=== PATIENT | female | born 1950 | race Caucasian/White ===

== ENCOUNTER → 2020-09-30 08:54 | Outpatient (CLI) | payer MEDICARE, SELFPAY ==
--- NOTE | 2020-09-30 08:57 | DI.RAD.S_ITS ---
PROCEDURE: XR CHEST 2V INDICATIONS: cough TECHNIQUE: 2 views of the chest were acquired. COMPARISON: None. FINDINGS: Surgical changes and devices: None. Lungs and pleura: Lungs are clear. No pleural effusions or pneumothorax. Mediastinum: Mediastinal contours are normal. Heart size is normal. Bones and chest wall: No suspicious bony abnormalities. Soft tissues appear unremarkable. IMPRESSION: No acute process. Dictated by: Alma Jarquin M.D. on 09/30/2020 at 15:10 Approved by: Alma Jarquin M.D. on 09/30/2020 at 15:11
[2020-09-30 09:45] LABS: COVID19 -Nasal RAPID Negative (Negative)
== END ==
PROVIDERS: PCP Family Medicine; Referring Provider Family Medicine; Visit Provider Internal Medicine
DX: Z20.822 Contact with and (suspected) exposure to COVID-19 (principal); R05 Cough; E78.2 Mixed hyperlipidemia
CPT/HCPCS: 71046; 87635; C9803

== ENCOUNTER → 2020-09-30 11:23 | Outpatient (CLI) | payer MEDICARE, SELFPAY ==
--- NOTE | 2020-10-05 09:12 | PM.PFT.1 ---
Pulmonary Function Test Referral & Results Date Patient Seen: 09/30/20 Requesting provider: Bhupinder Hill Results: The spirometry demonstrates an FVC of 2.71 L which is 100% of predicted. The FEV1 was measured at 2.15 L which is 106% of predicted. The FEV1/FVC ratio was 79 which is 104% of predicted. Following the administration of bronchodilator there was no appreciable change to above normal numbers. Lung volumes show an SVC of 2.62 L which is 99% of predicted. The diffusing capacity was measured at 20.94 which is 97% of predicted. The maximum voluntary ventilation was normal Interpretation: This study demonstrates normal pulmonary function
== END ==
PROVIDERS: PCP Family Medicine; Referring Provider Family Medicine; Visit Provider Family Medicine
DX: R05 Cough (principal); Z20.822 Contact with and (suspected) exposure to COVID-19; J98.8 Other specified respiratory disorders; E78.2 Mixed hyperlipidemia
CPT/HCPCS: 71046; 87635; 94060; 94726; 94729; C9803

== ENCOUNTER → 2020-11-15 10:36 | Outpatient (CLI) | payer MEDICARE, SELFPAY ==
--- NOTE | 2020-11-15 | DI.MG.S_ITS ---
BILATERAL DIGITAL SCREENING MAMMOGRAM 3D/2D WITH CAD WITH AUGMENTATION: 11/15/2020 CLINICAL: Routine screening. Bilateral augmentation. Comparison is made to exams dated: 12/22/2018 mammogram, 02/17/2017 breast MRI, 12/07/2010 mammogram, and 12/07/2010 ultrasound - out side. The tissue of both breasts is heterogeneously dense. This may lower the sensitivity of mammography. Current study was also evaluated with a Computer Aided Detection (CAD) system. Bilateral breast implants are present. No significant masses, calcifications, or other findings are seen in either breast. There has been no significant interval change. IMPRESSION: NEGATIVE There is no mammographic evidence of malignancy. A 1 year screening mammogram is recommended. This exam was interpreted at Station ID: [id number]. NOTE: For mammograms, a report in lay terms will be sent to the patient. Approximately 15% of breast malignancies will not be visualized mammographically. In the management of a palpable breast mass, a negative mammogram must not discourage biopsy of a clinically suspicious lesion. Electronically Signed By: Marino murdock/isma:11/15/2020 11:30:22 letter sent: Normal Exam ACR BI-RADS Category 1: Negative 3341F
== END ==
PROVIDERS: PCP Family Medicine; Referring Provider Family Medicine; Visit Provider Family Medicine
DX: Z12.31 Encounter for screening mammogram for malignant neoplasm of breast (principal); Z98.82 Breast implant status
CPT/HCPCS: 77063; 77067

== ENCOUNTER → 2021-03-20 15:43 | Outpatient (CLI) | payer MEDICARE, SELFPAY ==
--- NOTE | 2021-03-20 15:44 | DI.US.S_ITS ---
PROCEDURE: US PELVIC COMPLETE INDICATIONS: pelvic pain/poss L adnexal mass vs. uterus positioned on L TECHNIQUE: Real-time scanning was performed of the pelvic organs, with image documentation. Additional endovaginal scanning was necessary due to incomplete visualization of the adnexal and endometrial structures by transabdominal scanning. COMPARISON: None. FINDINGS: Uterus: Uterus is retroverted and normal in size at 3.8 x 1.5 x 2.7 cm. The myometrium is heterogeneous. The endometrium measures 1.3 mm combined thickness. Fluid with echogenic focus is seen within the endometrial canal, concerning for a polyp. Ovoid, slightly hypoechoic and hyperechoic lesions are seen in the myometrium, largest measuring 1.3 x 0.7 x 1 cm in the left aspect of the uterus. Ovaries: The right ovary measures 1.9 x 0.9 x 0.9 cm. The left ovary measures 1.7 x 0.8 x 1.1 cm. No adnexal masses are seen. Other: No pathologic free abdominal or pelvic fluid. IMPRESSION: 1. Fluid with echogenic focus within the endometrial canal, which may reflect a a polyp. A neoplastic process cannot be excluded. 2. Ovoid myometrial lesions, which may reflect calcified and noncalcified fibroids. We strive to produce accurate, complete, and clear reports of imaging services. To assist us in improving patient care, this report was composed using standard report templates and voice recognition software. Therefore, it may contain abnormal punctuation, insertions and/or omissions. Occasional wrong-word or sound-alike substitutions may occur. Though we review the report and make efforts to correct it, we do recommend that the report be read carefully in proper context to recognize any text inaccuracies. Dictated by: Ayad Larsen M.D. on 03/21/2021 at 9:02 Approved by: Ayad Larsen M.D. on 03/21/2021 at 9:14
== END ==
PROVIDERS: PCP Family Medicine; Referring Provider Registered Nurse Diabetes Educator; Visit Provider Registered Nurse Diabetes Educator
DX: R10.2 Pelvic and perineal pain (principal)
CPT/HCPCS: 76830; 76856

== ENCOUNTER → 2021-04-10 07:36 | Outpatient (CLI) | payer MEDICARE, SELFPAY ==
[2021-04-10 09:09] LABS: Hematocrit 40.1 % (36-46); Hemoglobin 13.5 g/dL (12.0-16.0); Mean Corpuscular HGB Conc 33.5 % (30-36); Mean Corpuscular Hemoglobin 29.7 PG (26-34); Mean Corpuscular Volume 88.4 fL (80-100); Platelet Count 224 X10^3/uL (150-400); Red Blood Cell Count 4.54 X10^6/uL (4.0-5.2); Red Cell Distribution Width 13.1 % (11.6-14.8); White Blood Cell Count 9.8 X10^3/uL (4.5-11.0)
[2021-04-10 09:11] LABS: Add Manual Diff / Slide Review YES
[2021-04-10 09:23] LABS: Alanine Aminotransferase 17 IU/L (<35); Albumin 4.6 g/dL (3.5-5.0); Albumin Globulin Ratio 1.8 (1.0-2.8); Alkaline Phosphatase 51 U/L (38-126); Aspartate Aminotransferase 28 IU/L (14-36); BUN Creatinine Ratio 20.6 (6-22); Bilirubin Total 0.7 mg/dL (0.2-1.3); Blood Urea Nitrogen 13 mg/dL (7-17); Calcium 9.1 mg/dL (8.4-10.2); Carbon Dioxide 29 mmol/L (22-32); Chloride 102 mmol/L (98-107); Cholesterol 182 mg/dL (140-199); Estimated Glomerular Filt Rate > 60.0 mL/min (>60); Globulin 2.6 g/dL (1.7-4.1); Glucose 118 mg/dL (80-110); HDL Cholesterol 82 mg/dL (40-60); HEMOLYSIS < 15 (0-50); LDL Cholesterol Calculated 86 mg/dL (<100); Potassium 4.4 mmol/L (3.4-5.1); Sodium 136 mmol/L (137-145); Total Protein 7.2 g/dL (6.3-8.2); Triglycerides 72 mg/dL (35-150)
[2021-04-10 09:30] LABS: Neutrophils Absolute Manual 2646 /uL (3000-5900); RBC Morphology Normal Morphology; Total Cells Counted 100
[2021-04-10 09:58] LABS: TSH w/ Reflex to FT4 1.22 uIU/mL (0.47-4.68)
== END ==
PROVIDERS: PCP Family Medicine; Referring Provider Family Medicine; Visit Provider Family Medicine
DX: I10 Essential (primary) hypertension (principal); E78.2 Mixed hyperlipidemia; G43.709 Chronic migraine without aura, not intractable, without status migrainosus
CPT/HCPCS: 36415; 80053; 80061; 84443; 85007; 85025

== ENCOUNTER → 2021-08-30 07:22 | Outpatient (CLI) | payer MEDICARE, SELFPAY ==
[2021-08-30 08:10] LABS: Hematocrit 40.7 % (36-46); Hemoglobin 13.6 g/dL (12.0-16.0); Mean Corpuscular HGB Conc 33.4 % (30-36); Mean Corpuscular Hemoglobin 29.9 PG (26-34); Mean Corpuscular Volume 89.7 fL (80-100); Platelet Count 202 X10^3/uL (150-400); Red Blood Cell Count 4.53 X10^6/uL (4.0-5.2); Red Cell Distribution Width 13.4 % (11.6-14.8); White Blood Cell Count 9.3 X10^3/uL (4.5-11.0)
[2021-08-30 08:11] LABS: Add Manual Diff / Slide Review YES
[2021-08-30 08:33] LABS: Alanine Aminotransferase 26 IU/L (<35); Albumin 4.8 g/dL (3.5-5.0); Albumin Globulin Ratio 2.3 (1.0-2.8); Alkaline Phosphatase 51 U/L (38-126); Aspartate Aminotransferase 34 IU/L (14-36); BUN Creatinine Ratio 21.1 (6-22); Bilirubin Total 0.7 mg/dL (0.2-1.3); Blood Urea Nitrogen 12 mg/dL (7-17); Calcium 9.2 mg/dL (8.4-10.2); Carbon Dioxide 29 mmol/L (22-32); Chloride 102 mmol/L (98-107); Estimated Glomerular Filt Rate > 60 mL/min (>60); Globulin 2.1 g/dL (1.7-4.1); Glucose 94 mg/dL (80-110); HEMOLYSIS < 15 (0-50); Hemoglobin A1C% w Est Avg Glu 5.4 % (4.0-6.0); Potassium 4.1 mmol/L (3.4-5.1); Sodium 140 mmol/L (137-145); Total Protein 6.9 g/dL (6.3-8.2)
[2021-08-30 09:01] LABS: Neutrophils Absolute Manual 2511 /uL (3000-5900); RBC Morphology Normal Morphology; Total Cells Counted 100
[2021-08-30 09:23] LABS: Hep C Virus Ab w/Reflex Quant NEGATIVE s/c (NEGATIVE)
[2021-08-30 09:29] LABS: Creatinine Urine Random 53.7 mg/dL
[2021-08-30 09:32] LABS: Microalbumi Creatinin Ratio Ur 16.7 ug/mg CR (<30); Microalbumin Urine Random 0.9 mg/dL (0-1.6)
[2021-08-31 15:23] LABS: Fecal Immunochemical Test Negative (Negative)
== END ==
PROVIDERS: PCP Family Medicine; Referring Provider Family Medicine; Visit Provider Family Medicine
DX: E78.2 Mixed hyperlipidemia (principal); R73.9 Hyperglycemia, unspecified; I10 Essential (primary) hypertension; Z12.11 Encounter for screening for malignant neoplasm of colon; Z11.59 Encounter for screening for other viral diseases; G43.709 Chronic migraine without aura, not intractable, without status migrainosus
CPT/HCPCS: 36415; 80053; 82043; 82274; 82570; 83036; 85007; 85025; 86803

== ENCOUNTER → 2021-12-18 16:26 | Outpatient (CLI) | payer MEDICARE, SELFPAY ==
--- NOTE | 2021-12-18 16:27 | DI.MG.S_ITS ---
BILATERAL DIGITAL SCREENING MAMMOGRAM 3D/2D WITH CAD WITH AUGMENTATION: 12/18/2021 CLINICAL: Routine screening. Comparison is made to exams dated: 11/15/2020 mammogram - [facility] and 12/22/2018 [facility]. Both breasts are heterogeneously dense, which may obscure small masses (category c / 51-75% glandular tissue). Current study was also evaluated with a Computer Aided Detection (CAD) system. Bilateral breast implants are stable. No significant masses, calcifications, or other findings are seen in either breast. There has been no significant interval change. IMPRESSION: NEGATIVE There is no mammographic evidence of malignancy. A 1 year screening mammogram is recommended. Based on the Tyrer Cuzick model (a risk assessment model) the patient's lifetime risk is 12.1% and her 10 year risk is 9.8%. According to the ACR, ACS, and NCCN guidelines, an annual breast MRI exam along with mammogram is recommended if the patient's lifetime risk is 20% or greater. This exam was interpreted at Station ID: [id number]. NOTE: For mammograms, a report in lay terms will be sent to the patient. Approximately 15% of breast malignancies will not be visualized mammographically. In the management of a palpable breast mass, a negative mammogram must not discourage biopsy of a clinically suspicious lesion. Electronically Signed By: Doc hughes/isma:12/19/2021 12:52:04 letter sent: Normal Exam ACR BI-RADS Category 1: Negative 3341F
== END ==
PROVIDERS: PCP Family Medicine; Referring Provider Family Medicine; Visit Provider Family Medicine
DX: Z12.31 Encounter for screening mammogram for malignant neoplasm of breast (principal)
CPT/HCPCS: 77063; 77067

== ENCOUNTER → 2022-06-27 06:40 | Outpatient (CLI) | payer MEDICARE, SELFPAY ==
[2022-06-27 07:51] LABS: Hematocrit 39.8 % (36-46); Hemoglobin 13.3 g/dL (12.0-16.0); Mean Corpuscular HGB Conc 33.4 % (30-36); Mean Corpuscular Hemoglobin 30.1 PG (26-34); Mean Corpuscular Volume 90.1 fL (80-100); Platelet Count 201 X10^3/uL (150-400); Red Blood Cell Count 4.41 X10^6/uL (4.0-5.2); Red Cell Distribution Width 13.1 % (11.6-14.8); White Blood Cell Count 12.4 X10^3/uL (4.5-11.0)
[2022-06-27 07:52] LABS: Add Manual Diff / Slide Review YES
[2022-06-27 08:03] LABS: Neutrophils Absolute Manual 2604 /uL (3000-5900); Total Cells Counted 100
[2022-06-27 08:04] LABS: Alanine Aminotransferase 21 IU/L (<35); Albumin 4.6 g/dL (3.5-5.0); Albumin Globulin Ratio 1.9 (1.0-2.8); Alkaline Phosphatase 56 U/L (38-126); Aspartate Aminotransferase 32 IU/L (14-36); BUN Creatinine Ratio 21.8 (6-22); Bilirubin Total 0.4 mg/dL (0.2-1.3); Blood Urea Nitrogen 12 mg/dL (7-17); Calcium 8.9 mg/dL (8.4-10.2); Carbon Dioxide 29 mmol/L (22-32); Chloride 104 mmol/L (98-107); Estimated Glomerular Filt Rate > 60 mL/min (>60); Globulin 2.4 g/dL (1.7-4.1); Glucose 95 mg/dL (80-110); HEMOLYSIS < 15 (0-50); Lactate Dehydrogenase 139 U/L (120-246); Potassium 4.2 mmol/L (3.4-5.1); RBC Morphology Normal Morphology; Sodium 138 mmol/L (137-145)
[2022-06-27 08:50] LABS: Cholesterol 194 mg/dL (140-199); HDL Cholesterol 79 mg/dL (40-60); LDL Cholesterol Calculated 103 mg/dL (<100); Triglycerides 62 mg/dL (35-150)
== END ==
PROVIDERS: Internal Medicine Medical Oncology; PCP Family Medicine; Referring Provider Family Medicine; Visit Provider Family Medicine
DX: E78.2 Mixed hyperlipidemia (principal); D72.820 Lymphocytosis (symptomatic)
CPT/HCPCS: 36415; 80053; 80061; 83615; 85007; 85025

== ENCOUNTER 2022-07-19 07:50 | Emergency (ER) | payer MEDICARE, SELFPAY ==
[2022-07-19 08:18] VITALS: BP 168/79; PULSE 69; RESP 19; TEMP 36.9; O2SAT 100; BMI 18.6
[2022-07-19 08:57] LABS: Hematocrit 39.6 % (36-46); Hemoglobin 13.3 g/dL (12.0-16.0); Mean Corpuscular HGB Conc 33.7 % (30-36); Mean Corpuscular Hemoglobin 30.4 PG (26-34); Mean Corpuscular Volume 90.2 fL (80-100); Platelet Count 189 X10^3/uL (150-400); Red Blood Cell Count 4.39 X10^6/uL (4.0-5.2); White Blood Cell Count 12.9 X10^3/uL (4.5-11.0)
[2022-07-19 09:00] LABS: Add Manual Diff / Slide Review YES
[2022-07-19 09:07] LABS: BUN Creatinine Ratio 25.5 (6-22); Blood Urea Nitrogen 14 mg/dL (7-17); C-Reactive Protein Quant < 0.5 mg/dL (<1.0); Calcium 9.2 mg/dL (8.4-10.2); Carbon Dioxide 29 mmol/L (22-32); Chloride 103 mmol/L (98-107); Estimated Glomerular Filt Rate > 60 mL/min (>60); Glucose 111 mg/dL (80-110); HEMOLYSIS < 15 (0-50); Potassium 4.8 mmol/L (3.4-5.1); Sodium 138 mmol/L (137-145)
[2022-07-19 09:13] LABS: Erythrocyte Sedimentation Rate 2 MM/HR (0-20)
[2022-07-19 09:19] LABS: Neutrophils Absolute Manual 2838 /uL (3000-5900); RBC Morphology Normal Morphology; Smudge Cells 1+; Total Cells Counted 100
--- NOTE | 2022-07-19 09:37 | ED_ITS ---
HPI - Headache General Chief Complaint: Headache Stated Complaint: head pain T-4 Time Seen by Provider: 07/19/22 08:27 Mode of arrival: Family Vehicle History of Present Illness HPI Narrative: 72-year-old female nonsmoker with history of hypertension and hyperlipidemia presents with a chief complaint of episodes of right-sided sharp and stabbing headache for the past 3-4 days. She states that it feels like an electric lightening bolt it starts behind her right ear and comes forward on the right side of her head. She denies any fever or chills. She is had no trauma or injury. She denies neck or back pain. She takes no blood thinners. She denies dizziness, weakness or lightheadedness. She has no blurred vision, numbness, tingling. She denies ear pain or sore throat. She denies any obvious provocation or palliation. She states the painful episodes last 30-45 seconds and seemed to come out of nowhere Related Data Previous Rx's Medication Instructions Recorded simvastatin 40 mg tablet 40 mg PO DAILY #90 tabs 09/26/21 losartan 25 mg tablet See Rx Instructions .Route 05/16/22 .COMPLEX #100 tabs gabapentin 300 mg capsule 300 mg PO TID #90 caps 07/16/22 carbamazepine 100 mg 100 mg PO BID #30 caps 07/19/22 capsule,extended release [id number] ondansetron 4 mg disintegrating 4 mg PO TID-QID PRN nausea and 07/19/22 tablet vomiting #10 tabs Allergies Allergy/AdvReac Type Severity Reaction Status Date / Time lisinopril AdvReac Mild cough Verified 07/19/22 08:23 Review of Systems Review of Systems Narrative: GENERAL: Denies chills, fatigue, malaise, fever, sweats. HEENT: Denies sinus pain, ear pain, sore throat, difficulty swallowing, dizziness. RESPIRATORY: Denies dyspnea, cough, wheezing, hemoptysis, sputum. CARDIOVASCULAR: Denies chest pain, palpitations, orthopnea, edema, GASTROINTESTINAL: Denies nausea, vomiting, abdominal pain, diarrhea, constipation, melena. : Denies dysuria, frequency, incontinence, hematuria, urinary retention. MUSCULOSKELETAL: denies weakness, joint pain, or bony pain SKIN: Denies rash, skin lesions, or other NEUROLOGIC: See HPI PSYCHIATRIC: No concerning psychosocial issues. 12 point review of systems is negative except for those stated above Patient History Medical History Chronic migraine Hyperglycemia Hyperlipidemia Hypertension Social History Smoking Status: Never smoker alcohol intake: current substance use type: does not use Smoking Status: Never smoker Substance Use Type: does not use Exam Narrative Exam Narrative: GENERAL: [72] year old patient appears stated age. Well-developed patient, in mild distress. HEAD: Atraumatic. Normocephalic. EYES: Pupils equal round and reactive. Extraocular motions intact. No scleral icterus. No injection or drainage. ENT: Nose without bleeding, purulent drainage. Throat without erythema, tonsillar hypertrophy or exudate. Airway patent. NECK: Trachea midline. Non tender CARDIOVASCULAR: Regular rate and rhythm without murmurs, gallops, or rubs. RESPIRATORY: Clear to auscultation. Breath sounds equal bilaterally. No wheezes, rales, or rhonchi. GASTROINTESTINAL: Abdomen soft, non-tender, nondistended. EXTREMITIES: No edema or joint tenderness. BACK: Nontender without deformity or crepitance. No flank tenderness. NEURO: AOx3. SKIN: No rash or erythema of visible areas Initial Vital Signs Initial Vital Signs: Vital Signs Temperature 98.5 F 07/19/22 08:18 Pulse Rate 69 07/19/22 08:18 Respiratory Rate 19 07/19/22 08:18 Blood Pressure 168/79 H 07/19/22 08:18 Pulse Oximetry 100 07/19/22 08:18 Oxygen Delivery Method Room Air 07/19/22 08:18 Course Orders Ordered: ED Orders 07/19/22 08:43 BMP [Basic Metabolic Panel] Stat CBC Auto Diff [Complete Blood Count AUTO DIFF] Stat CRP [C-Reactive Protein Quant] Stat ESR [Erythrocyte Sedimentation Rate] Stat Vital Signs Vital signs: Vital Signs - 8 hr 07/19/22 08:18 Temperature 98.5 F Pulse Rate 69 Respiratory Rate 19 Blood Pressure 168/79 H Pulse Oximetry 100 Oxygen Delivery Method Room Air MDM - Headache Lab Data 07/19/22 08:43 07/19/22 08:43 Labs: Lab Results 07/19/22 07/19/22 Range/Units 08:43 08:43 WBC 12.9 H (4.5-11.0) X10^3/uL RBC 4.39 (4.0-5.2) X10^6/uL Hgb 13.3 (12.0-16.0) g/dL Hct 39.6 (36-46) % MCV 90.2 (80-100) fL MCH 30.4 (26-34) PG MCHC 33.7 (30-36) % RDW 13.0 (11.6-14.8) % Plt Count 189 (150-400) X10^3/uL Neut % (Auto) Not Reportable Lymph % (Auto) Not Reportable [place] % (Auto) Not Reportable Eos % (Auto) Not Reportable Baso % (Auto) Not Reportable Lymph # (Auto) Not Reportable [place] # (Auto) Not Reportable Baso # (Auto) Not Reportable Total Counted 100 Seg Neutrophils % 22.0 L (38-70) % Lymphocytes % (Manual) 59.0 H (25-45) % Atypical Lymphs % 17.0 H ( - 0) % Monocytes % (Manual) 2.0 (2-11) % Neutrophils # (Manual) 2838 L (5028-8189) /uL Smudge Cells 1+ H RBC Morphology Normal morphology ESR 2 (0-20) MM/HR Sodium 138 (137-145) mmol/L Potassium 4.8 (3.4-5.1) mmol/L Chloride 103 (98-107) mmol/L Carbon Dioxide 29 (22-32) mmol/L BUN 14 (7-17) mg/dL Creatinine 0.55 (0.52-1.04) mg/dL Estimated GFR > 60 (>60) mL/min BUN/Creatinine Ratio 25.5 H (6-22) Glucose 111 H (80-110) mg/dL Calcium 9.2 (8.4-10.2) mg/dL C-Reactive Protein < 0.5 (<1.0) mg/dL [facility] Narrative Medical decision making narrative: [72] year old patient presents with right-sided sharp and stabbing headache coming in brief episodes Prior Charts reviewed in our EMR Primary Historian: patient Headache considerations include, but not limited to: Subarachnoid hemorrhage, but unlikely as patient denies sudden onset of pain, not worst of life, or neck pain Meningitis considered, but thought unlikely given lack of Brudzinski's, Kernig's sign, altered mental status or fever Giant cell arteritis considered, but thought unlikely given lack of unilateral findings, pain in episcopalian, vision change HTN Emergency considered, but thought unlikely given normal vitals Other serious diagnoses considered unlikely given lack of red flag findings such as sudden onset, increasing frequency, immunocompromise, systemic signs (fever, chills, stiff neck, or rash), focal neurologic findings, trauma, blood thinners, etc. Trigeminal neuralgia considered highly likely given patient's history and physical, brief sharp and stabbing episodes, unilateral. Findings and discharge diagnosis discussed with patient/family followed by verbalization of understanding Return precautions discussed with patient/family whom verbalize understanding of diagnosis and plan Discharge Plan Departure Patient Disposition: Home Clinical Impression: Right trigeminal neuralgia Instructions: DI for Trigeminal Neuralgia Activity Restrictions/Additional Instructions: *You have been diagnosed with [right-sided headache, concerning for possible trigeminal neuralgia. As we discussed your history and physical exam are reassuring in the labs we obtained today are helpful at ruling out other causes of headache.] *What to do: *Please continue to take your regular medications as directed. [ x] New medication prescriptions sent to your pharmacy: [[facility] ] [ ] New medication written as a paper prescription [ ] No new medications given *Please follow up with your primary care provider in 2-3 days, call for an appointment. Let them know you were seen in the Emergency Department and that we ask that you be seen in follow up. We will electronically transmit a record of today's note if your PCP is in our system *Return to Emergency Department if you should have any new, worsening or concerning symptoms, such as [fever greater than 101 F, shaking chills, worsening pain, persistent vomiting or other bothersome symptoms] Prescriptions: New carbamazepine 100 mg capsule, ER multiphase 12 hr 100 mg PO BID Qty: 30 0RF ondansetron 4 mg tablet,disintegrating 4 mg PO TID-QID PRN (Reason: nausea and vomiting) Qty: 10 0RF No Action simvastatin 40 mg tablet 40 mg PO DAILY Qty: 90 3RF losartan 25 mg tablet See Rx Instructions .ROUTE .COMPLEX Qty: 100 0RF Dose Instruction: TAKE ONE TABLET BY MOUTH ONE TIME DAILY Rx Instructions: TAKE ONE TABLET BY MOUTH ONE TIME DAILY gabapentin 300 mg capsule 300 mg PO TID Qty: 90 1RF Referrals: Bhupinder Hill MD [Primary Care Provider] - Stand Alone Forms: Patient Portal/API
[2022-07-19 10:06] VITALS: BP 164/72; PULSE 70; O2SAT 100
== END 2022-07-19 10:21 | disposition home or self-care (01) ==
PROVIDERS: Emergency Provider Emergency Medicine; PCP Family Medicine
DX: G50.0 Trigeminal neuralgia (principal)
CPT/HCPCS: 36415; 80048; 85007; 85025; 85651; 86140; 99281; 99283

== ENCOUNTER → 2022-08-06 13:12 | Outpatient (CLI) | payer MEDICARE, SELFPAY ==
--- NOTE | 2022-08-06 13:13 | DI.MRI.S_ITS ---
PROCEDURE: MR HEAD/BRAIN WO/W CON INDICATIONS: trigeminal neuralgia TECHNIQUE: Noncontrast axial T1 spin echo, axial T2 fast spin echo, sagittal and axial FLAIR, coronal T2 fast spin echo, axial gradient echo, axial diffusion and ADC through the brain. After the administration of contrast, axial and coronal and sagittal 3D VIBE or T1 spin echo with fat saturation through the brain. COMPARISON: None. FINDINGS: Image quality: Excellent. CSF Spaces: Basal cisterns are patent. No extra-axial fluid collections. Ventricles are normal in size and shape. Brain: No midline shift. No intracranial bleeds or masses. No abnormal intracranial enhancement. The brainstem appears normal. Diffusion-weighted images demonstrate no acute infarct. Normal intravascular flow voids are present. Thin-section images through the skull base demonstrate the cisternal component of the trigeminal nerve. No evidence of signal abnormality or adjacent vascular loop Skull and face: Calvarial marrow is normal in signal. Orbits appear normal. Sinuses: Sinuses and mastoids appear clear. IMPRESSION: Unremarkable MRI of the brain and trigeminal nerve. Approved by: Hemant Schultz M.D. on 08/06/2022 at 16:00
== END ==
PROVIDERS: PCP Family Medicine; Referring Provider Nurse Practitioner Family; Visit Provider Nurse Practitioner Family
DX: G50.0 Trigeminal neuralgia (principal)
CPT/HCPCS: 70553; A9579

== ENCOUNTER → 2023-01-07 15:31 | Outpatient (CLI) | payer MEDICARE, SELFPAY ==
--- NOTE | 2023-01-07 15:33 | DI.MG.S_ITS ---
BILATERAL DIGITAL SCREENING MAMMOGRAM 3D/2D WITH CAD WITH AUGMENTATION: 01/07/2023 CLINICAL: Routine screening. Comparison is made to exams dated: 12/18/2021 mammogram, 11/15/2020 mammogram - [facility], and 12/22/2018 mammogram - out side. Both breasts are heterogeneously dense, which may obscure small masses (category c / 51-75% glandular tissue). Current study was also evaluated with a Computer Aided Detection (CAD) system. Bilateral breast implants are stable. No significant masses, calcifications, or other findings are seen in either breast. There has been no significant interval change. IMPRESSION: NEGATIVE There is no mammographic evidence of malignancy. A 1 year screening mammogram is recommended. Based on the Tyrer Cuzick model (a risk assessment model) the patient's lifetime risk is 11.9% and her 10 year risk is 10.1%. According to the ACR, ACS, and NCCN guidelines, an annual breast MRI exam along with mammogram is recommended if the patient's lifetime risk is 20% or greater. This exam was interpreted at Station ID: [id number]. NOTE: For mammograms, a report in lay terms will be sent to the patient. Approximately 15% of breast malignancies will not be visualized mammographically. In the management of a palpable breast mass, a negative mammogram must not discourage biopsy of a clinically suspicious lesion. Electronically Signed By: Amita salguero/isma:01/08/2023 17:28:17 letter sent: Normal Exam ACR BI-RADS Category 1: Negative 3341F
== END ==
PROVIDERS: PCP Family Medicine; Referring Provider Family Medicine; Visit Provider Family Medicine
DX: Z12.31 Encounter for screening mammogram for malignant neoplasm of breast (principal)
CPT/HCPCS: 77063; 77067

== ENCOUNTER → 2023-03-30 07:55 | Outpatient (CLI) | payer MEDICARE, SELFPAY ==
[2023-03-30 09:12] LABS: Add Manual Diff / Slide Review YES; Hematocrit 40.3 % (36-46); Hemoglobin 13.3 g/dL (12.0-16.0); Mean Corpuscular HGB Conc 33.1 % (30-36); Mean Corpuscular Hemoglobin 29.2 PG (26-34); Mean Corpuscular Volume 88.3 fL (80-100); Platelet Count 177 X10^3/uL (150-400); Red Blood Cell Count 4.57 X10^6/uL (4.0-5.2); Red Cell Distribution Width 13.3 % (11.6-14.8); White Blood Cell Count 15.6 X10^3/uL (4.5-11.0)
[2023-03-30 09:37] LABS: Alanine Aminotransferase 20 IU/L (<35); Albumin 4.6 g/dL (3.5-5.0); Alkaline Phosphatase 60 U/L (38-126); Aspartate Aminotransferase 28 IU/L (14-36); Bilirubin Total 0.7 mg/dL (0.2-1.3); Blood Urea Nitrogen 11 mg/dL (7-17); Calcium 9.3 mg/dL (8.4-10.2); Carbon Dioxide 26 mmol/L (22-32); Chloride 101 mmol/L (98-107); Cholesterol 166 mg/dL (140-199); Estimated Glomerular Filt Rate > 60 mL/min (>60); Globulin 2.3 g/dL (1.7-4.1); Glucose 91 mg/dL (80-110); HDL Cholesterol 76 mg/dL (40-60); HEMOLYSIS < 15 (0-50); LDL Cholesterol Calculated 80 mg/dL (<100); Lactate Dehydrogenase 143 U/L (120-246); Potassium 4.4 mmol/L (3.4-5.1); Sodium 137 mmol/L (137-145); Total Protein 6.9 g/dL (6.3-8.2); Triglycerides 50 mg/dL (35-150)
[2023-03-30 11:37] LABS: Neutrophils Absolute Manual 2652 /uL (3000-5900); RBC Morphology Normal Morphology; Total Cells Counted 100
[2023-04-01 06:08] LABS: Apolipoprotein B 80 mg/dL (<90)
== END ==
LOC: LAB 07:56
PROVIDERS: PCP Family Medicine; Referring Provider Family Medicine; Visit Provider Family Medicine
DX: D72.820 Lymphocytosis (symptomatic) (principal); E78.2 Mixed hyperlipidemia; R73.9 Hyperglycemia, unspecified; I10 Essential (primary) hypertension
CPT/HCPCS: 36415; 80053; 80061; 82172; 83615; 85007; 85025

== ENCOUNTER → 2023-07-16 14:40 | Outpatient (CLI) | payer MEDICARE, SELFPAY ==
--- NOTE | 2023-07-16 14:40 | DI.RAD.S_ITS ---
PROCEDURE: XR DEXA AXIAL SKELETON INDICATIONS: osteopenia, postmenopausal COMPARISON: None. FINDINGS: Lumbar Spine: Bone mineral density 0.72 a g/cm2, T score -2 point, osteoporosis. Left Hip: Bone mineral density 0.657 g/cm2, T score -2.3, osteopenia. Left Femoral Neck: Bone mineral density 0.541 g/cm2, T score -2.8, osteoporosis. Right Hip: Bone mineral density 0.625 g/cm2, T score -2.6, osteoporosis. Right Femoral Neck: Bone mineral density 0.494 g/cm2, T score -3.2, osteoporosis. Fracture Risk Calculation (when applicable): 10-year fracture risk of a major osteoporotic fracture 22-26% and of a hip fracture 7.3-7.4%. (T score greater or equal to -1.0 to: NORMAL) (T score from -1.1 to -2.4: OSTEOPENIA) (T score less than or equal to -2.5: OSTEOPOROSIS) IMPRESSION: Based on WHO criteria, the patient has osteoporosis and increased risk for osteoporotic fractures. Follow-up guidelines as follows: Osteoporosis: Consider a repeat DEXA and Vertebral Fracture Assessment (VFA) exam in 2 years or sooner if medically necessary, to reassess this patient's status. Osteopenia: Consider a repeat DEXA in 2-3 years to reassess this patient's status, or if there is a new clinical indication. Normal: Consider a repeat DEXA in 5 years or sooner, or if there is a new clinical indication. All treatment decisions require clinical judgment and consideration of individual patient factors, including patient preferences, comorbidities, previous drug use, risk factors not captured in the FRAX model (e.g., frailty, falls, vitamin D deficiency, increased bone turnover, interval significant decline in bone density ) and possible under- or over-estimation of fracture risk by FRAX. In addition, the NOF Guide recommends that FDA-approved medical therapies be considered in postmenopausal women and men age >= 50 years with a: * Hip or vertebral (clinical or morphometric) fracture * T-score of <=-2.5 at the spine or hip * Ten-year fracture probability by FRAX of >= 3% for hip fracture or >=20% for major osteoporotic fracture. People with diagnosed cases of osteoporosis or at high risk for fracture should have regular bone mineral density tests. For patients eligible for Medicare, routine testing is allowed once every 2 years. The testing frequency can be increased to one year for patients who have rapidly progressing disease, those who are receiving or discontinuing medical therapy to restore bone mass, or have additional risk factors. Dictated by: Chet Harrell M.D. on 07/16/2023 at 17:09 Approved by: Chet Harrell M.D. on 07/16/2023 at 17:11
== END ==
PROVIDERS: PCP Family Medicine; Referring Provider Family Medicine; Visit Provider Family Medicine
DX: M81.0 Age-related osteoporosis without current pathological fracture (principal); N95.9 Unspecified menopausal and perimenopausal disorder
CPT/HCPCS: 77080

== ENCOUNTER 2023-07-25 06:43 | Day surgery (SDC) | payer MEDICARE, SELFPAY ==
--- NOTE | 2023-07-25 | PATH_ITS ---
[facility] Accession Number: [id number] No. of containers..01 Tissue . 01 Material submitted: . colon - ASCENDING POLYP . 01 Diagnosis: ASCENDING POLYP: Tubular adenoma. STO 07/30/2023 1515 Local . 01 Electronically signed: . Nicolas Villagomez MD, Pathologist NPI- [id number] . 01 Gross description: . ASCENDING POLYP: Received in formalin is 1 fragment(s) of chew, soft tissue measuring 0.7 x 0.6 x 0.4 cm submitted entirely in 1 cassette(s) /DARWIN 07/30/2023 1515 Local . 01 Pathologist provided ICD-10: D12.2 . 01 CPT . 105448 Specimen Comment: A courtesy copy of this report has been sent to [phone] Performed at: [address] [id number] MD Nicolas Villagomez MD Phone: [phone]
[2023-07-25 07:08] VITALS: BP 168/82; PULSE 71; RESP 16; TEMP 36.6; O2SAT 100
[2023-07-25] MEDS: LACTATED RINGERS 1,000 ML 42 ML IV (07:39)
--- NOTE | 2023-07-25 07:46 | PM.HP.1 ---
History of Present Illness History of Present Illness Date Patient Seen: 07/25/23 Time Patient Seen: 07:46 Chief complaint: SDC Narrative: Aleyda is a 73-year-old woman with dysphagia was also due for colon cancer screening. See office note from May for details. [facility] Medical History Hyperglycemia Chronic migraine Hyperlipidemia Hypertension Social History Smoking Status: Never smoker alcohol intake: current substance use type: does not use Meds Home Medications and Allergies Home Medications Medication Instructions Recorded Confirmed Type simvastatin 40 mg tablet 40 mg PO DAILY #90 tabs 10/18/22 07/25/23 Rx losartan 25 mg tablet 25 mg PO DAILY #100 tabs 06/24/23 07/25/23 Rx sodium sul 1.479 gram-potas ch See Rx Instructions PO PER PKG DIR 06/26/23 07/25/23 Rx 0.188 gram-magnes sul 0.225 gram #24 tabs tablet (Sutab) Allergies Allergy/AdvReac Type Severity Reaction Status Date / Time lisinopril AdvReac Mild cough Verified 07/25/23 07:25 Exam Vital Signs (past 8 hours): - 07/25/23 07:08 Temperature 98 F Pulse Rate 71 Respiratory Rate 16 Blood Pressure 168/82 H Pulse Oximetry 100 Oxygen Delivery Method Room Air Oxygen Delivery Method Room Air Const General: No acute distress Resp Effort & Inspection: normal respiratory effort Assessment & Plan Assessment and plan (1) Dysphagia: Qualifiers: Dysphagia type: esophageal phase Qualified Code(s): R13.19 - Other dysphagia Status: Acute (2) Encounter for screening for malignant neoplasm of colon: Status: Acute Plan We reviewed the risks and benefits of EGD and colonoscopy for dysphagia and colon cancer screening and she would like to proceed.
--- NOTE | 2023-07-25 08:00 | SUR.OPER ---
ANESTHESIA COMPUTER NOT WORKING
[2023-07-25 08:44] VITALS: BP 98/54; PULSE 70; RESP 19; TEMP 36.7; O2SAT 98
[2023-07-25 08:45] VITALS: BP 95/55; PULSE 70; RESP 16; O2SAT 100
[2023-07-25 08:48] VITALS: BP 100/60; PULSE 73; RESP 20; O2SAT 100
--- NOTE | 2023-07-25 08:48 | PM.OP.EC ---
Operative Date/Time/Diagnoses Date of procedure: 07/25/23 Time of procedure: 08:49 Pre-op diagnosis: Dysphagia and colon cancer screening Post-op diagnosis: same Procedure & Clinicians Study performed: EGD and colonoscopy Same procedure as scheduled: Yes Surgeon: John Cohen Procedure Notes Procedure in detail: Surgeon: John Cohen MD Anesthesia: Gilda Casey DO Procedure in detail: A timeout was performed. A bite blocked was placed and monitors were attached to the patient. The patient was positioned in the left lateral decubitus position. Sedation was administered. Once the patient was sedated the endoscope was inserted through the bite block and passed through the esophagus and stomach and into the duodenum. No abnormalities were seen. We then withdrew the scope into the stomach. No abnormalities were seen. The endoscope was retroflexed and no hiatal hernia was seen. The endoscope was straightned and withdrawn into the esophagus. No further abnormalities were seen. EGD findings: Normal EGD Next we repositioned the patient for a colonoscopy. A digital rectal exam was performed and was normal. The colonoscope was inserted and advanced to the cecum. The appendiceal orifice was identified and photographed. The terminal ileum was intubated and no abnormalities were seen. The scope was slowly withdrawn over greater than 6 minutes. There was a 7 mm polyp in the ascending colon removed with a cold snare. The rest of the colon was normal. The scope was retroflexed in the rectum and internal hemorrhoids were noted. Colonoscopy findings: 7 mm polyp in the ascending colon and internal hemorrhoids Total procedural EBL: 5 mL Scope withdrawal time: 10 minutes Sedation minutes: 26 minutes Post-procedure Disposition: PACU
[2023-07-25 08:58] VITALS: BP 120/56; PULSE 71; RESP 20; O2SAT 98
== END 2023-07-25 09:08 | disposition home or self-care (01) ==
PROVIDERS: PCP Family Medicine; Referring Provider Surgery; Visit Provider Surgery
PROC: 0DJ08ZZ Inspection of Upper Intestinal Tract, Via Natural or Artificial Opening Endoscopic (ICD-10-PCS; CPT 43235; principal; 2023-07-25 07:45)
PROC: 0DJD8ZZ Inspection of Lower Intestinal Tract, Via Natural or Artificial Opening Endoscopic (ICD-10-PCS; CPT 45378; 2023-07-25 07:45)
DX: Z12.11 Encounter for screening for malignant neoplasm of colon (principal); R13.10 Dysphagia, unspecified; K64.8 Other hemorrhoids; D12.2 Benign neoplasm of ascending colon
CPT/HCPCS: 45385; 43235; J2704

== ENCOUNTER → 2024-01-11 11:10 | Outpatient (CLI) | payer MEDICARE, SELFPAY ==
--- NOTE | 2024-01-11 | DI.MG.S_ITS ---
BILATERAL DIGITAL SCREENING MAMMOGRAM 3D/2D WITH CAD WITH AUGMENTATION: 01/11/2024 CLINICAL: Routine screening. Comparison is made to exams dated: 01/07/2023 mammogram, 12/18/2021 mammogram, 11/15/2020 mammogram - [facility], and 12/22/2018 mammogram - out side. The breasts are heterogeneously dense, which may obscure small masses (category c / 51-75% glandular tissue). Current study was also evaluated with a Computer Aided Detection (CAD) system. Bilateral breast implants are stable and intact. No significant masses, calcifications, or other findings are seen in either breast. There has been no significant interval change. IMPRESSION: BENIGN There is no mammographic evidence of malignancy. A 1 year screening mammogram is recommended. Based on the Tyrer Cuzick model (a risk assessment model) the patient's lifetime risk is 10.6% and her 10 year risk is 10.6%. According to the ACR, ACS, and NCCN guidelines, an annual breast MRI exam along with mammogram is recommended if the patient's lifetime risk is 20% or greater. This exam was interpreted at Station ID: [id number]. NOTE: For mammograms, a report in lay terms will be sent to the patient. Approximately 15% of breast malignancies will not be visualized mammographically. In the management of a palpable breast mass, a negative mammogram must not discourage biopsy of a clinically suspicious lesion. Electronically Signed By: Sharon Mccarthy M.D., Ph.D. yousif/[email or web address]:01/15/2024 12:40:34 letter sent: Normal Exam ACR BI-RADS Category 2: Benign
== END ==
PROVIDERS: PCP Family Medicine; Referring Provider Family Medicine; Visit Provider Family Medicine
DX: Z12.31 Encounter for screening mammogram for malignant neoplasm of breast (principal); R92.333 Mammographic heterogeneous density, bilateral breasts
CPT/HCPCS: 77063; 77067

== ENCOUNTER → 2024-06-26 07:14 | Outpatient (CLI) | payer MEDICARE, SELFPAY ==
[2024-06-26 07:36] LABS: Hemoglobin 13.3 g/dL (12.0-16.0); Mean Corpuscular Hemoglobin 30.1 PG (26-34); Mean Corpuscular Volume 88.5 fL (80-100); Platelet Count 176 X10^3/uL (150-400); Red Blood Cell Count 4.41 X10^6/uL (4.0-5.2); Red Cell Distribution Width 13.5 % (11.6-14.8); White Blood Cell Count 26.5 X10^3/uL (4.5-11.0)
[2024-06-26 07:45] LABS: Add Manual Diff / Slide Review YES
[2024-06-26 07:51] LABS: Alanine Aminotransferase 21 IU/L (<35); Albumin 4.5 g/dL (3.5-5.0); Albumin Globulin Ratio 2.5 (1.0-2.8); Alkaline Phosphatase 60 U/L (38-126); Aspartate Aminotransferase 28 IU/L (14-36); BUN Creatinine Ratio 24.6 (6-22); Bilirubin Total 0.7 mg/dL (0.2-1.3); Blood Urea Nitrogen 14 mg/dL (7-17); Calcium 9.3 mg/dL (8.4-10.2); Carbon Dioxide 26 mmol/L (22-32); Chloride 100 mmol/L (98-107); Cholesterol 178 mg/dL (140-199); Estimated Glomerular Filt Rate > 60 mL/min (>60); Globulin 1.8 g/dL (1.7-4.1); Glucose 99 mg/dL (70-99); HDL Cholesterol 67 mg/dL (40-60); HEMOLYSIS < 15 (0-50); LDL Cholesterol Calculated 98 mg/dL (<100); Potassium 4.3 mmol/L (3.4-5.1); Sodium 134 mmol/L (137-145); Total Protein 6.3 g/dL (6.3-8.2); Triglycerides 63 mg/dL (35-150)
[2024-06-26 08:17] LABS: Creatinine Urine Random 56.73 mg/dL
[2024-06-26 08:21] LABS: Microalbumin Urine Random 0.6 mg/dL (0-1.6)
[2024-06-26 08:22] LABS: TSH w/ Reflex to FT4 1.96 uIU/mL (0.47-4.68)
[2024-06-26 13:01] LABS: Neutrophils Absolute Manual 3975 /uL (3000-5900); Total Cells Counted 100
[2024-06-26 13:02] LABS: RBC Morphology Normal Morphology; Smudge Cells 1+
[2024-06-27 04:10] LABS: Apolipoprotein B 86 mg/dL (<90)
== END ==
PROVIDERS: PCP Family Medicine; Referring Provider Family Medicine; Visit Provider Family Medicine
DX: E78.5 Hyperlipidemia, unspecified (principal); M81.0 Age-related osteoporosis without current pathological fracture; R73.9 Hyperglycemia, unspecified; C91.10 Chronic lymphocytic leukemia of B-cell type not having achieved remission; G50.0 Trigeminal neuralgia; I10 Essential (primary) hypertension
CPT/HCPCS: 36415; 80053; 80061; 82043; 82172; 82570; 84443; 85007; 85025

== ENCOUNTER → 2024-12-19 07:35 | Outpatient (CLI) | payer MEDICARE, SELFPAY ==
[2024-12-19 08:19] LABS: COVID-19 CEPHEID 4-PLEX PCR Negative (Negative); Influenza A - CEPHEID Flu A NEGATIVE (NEGATIVE); Influenza B - CEPHEID Flu B NEGATIVE (NEGATIVE)
== END ==
PROVIDERS: PCP Family Medicine; Visit Provider Registered Nurse
DX: J02.9 Acute pharyngitis, unspecified (principal)
CPT/HCPCS: 87637